=== PATIENT | male | born 1985 | race African-American/Black ===

== ENCOUNTER 2022-05-14 16:28 | Inpatient (IN) | payer SELFPAY ==
[~2022-05-14] VITALS: Ht 182.9 cm; Wt 85.5 kg
[2022-05-14] VITALS (7 sets, daily range): BP systolic 106–128; BP diastolic 62–76
[~2022-05-14 16:28] MED LIST: "\\\"BP MED\\\"" PO; AMOXIL500 MG PO; ANAPROX DS550 MG PO; COUMADIN1 MG PO; COUMADIN10 M1 PO; COUMADIN4 M1 PO; COUMADIN5 M1 PO; COUMADIN5 MG PO; COUMADIN7.5 M1 PO; CYMBALTA30 MG PO; Coumadin5 MG PO; DEPRESSION MED PO; HYDROCODONE BIT1 T11 PO; IBUPROFEN 30 M800 MG PO; LEVAQUIN750 MG PO; LISINOPRIL2.5 MG PO; NAPROSYN500 MG PO; OXYCODONE AND A1 TA3 PO; PERCOCET 325 MG1 TA2 PO; PERCOCET 325 MG1 TA7 PO; PRADAXA150 MG PO; PREDNISONE20 MG PO; PROTONIX40 MG PO; TESSALON PERLE200 MG PO; ULTRAM50 MG PO; VICO10300 PO; ZOFRAN ODT4 MG SL
[2022-05-14 16:45] LABS: ABG BASE EXCESS -6.7 mmol/L (-2.0-2.0); ARTERIAL BLOOD GAS PH 7.313 (7.35-7.45); ARTERIAL BLOOD GAS PO2 186.4 (80-90)
[2022-05-14 17:15] LABS: BASO % 0.2 % (0.0-1.0); EOS # 0.1 10*3/uL (0.0-0.4); EOS % 0.5 % (1.0-4.0); HEMATOCRIT 49.9 % (42.0-52.0); LYMPH # 2.5 10*3/uL (1.3-4.4); LYMPH % 17.9 % (27.0-41.0); MEAN CELL VOLUME 87.5 fl (80.0-94.0); MEAN CORPUSCULAR HGB CONC 30.9 g/dl (33.0-37.0); MEAN PLATELET VOLUME 9.5 fl (9.6-12.3); MONO # 0.6 10*3/uL (0.1-1.0); MONO % 4.2 % (3.0-9.0); NEUT # 10.8 10*3/uL (2.3-7.9); NEUT % 76.6 % (47.0-73.0); PLATELET COUNT AUTOMATED 166 10*3/uL (130-400); RED CELL DISTRI WIDTH 21.8 % (0-14.5)
[2022-05-14 17:26] LABS: ACT PARTIAL THROMBO TIME 22.2 SECONDS (20.0-32.1); INTERNATIONAL NORM RATIO 1.1 (2.0-3.5)
[2022-05-14 17:32] LABS: ALKALINE PHOSPHATASE 142 U/L (45-117); BUN 8 mg/dl (7-24); CHLORIDE 107 mmol/L (98-107); CREATININE 1.44 mg/dL (0.70-1.30); POTASSIUM 3.1 mmol/L (3.5-5.1); SGPT/ALT 47 U/L (12-78); SODIUM 138 mmol/L (136-145); TOTAL PROTEIN 8.4 gm/dL (6.4-8.2)
[2022-05-15 00:22] VITALS: BP 102/79
[2022-05-15] MEDS ORDERED: XARELTO20 M1 PO (02:39)
[2022-05-15 04:00] VITALS: BP 111/81
== END 2022-05-15 05:13 | disposition short-term general hospital (02) | DRG 175 ==
LOC: ED 16:28 → EDHOLD 20:43 → ICCU 20:43
PROVIDERS: Emergency Medicine; ADMIT Internal Medicine; ATTEND Internal Medicine
PROC: 0HQ1XZZ Repair Face Skin, External Approach (ICD-10-PCS; principal; 2022-05-14)
PROC: 0CQ0XZZ Repair Upper Lip, External Approach (ICD-10-PCS; 2022-05-15)
DX: I26.99 Other pulmonary embolism without acute cor pulmonale (principal); I21.4 Non-ST elevation (NSTEMI) myocardial infarction; N17.0 Acute kidney failure with tubular necrosis; E87.20 Acidosis, unspecified; I27.20 Pulmonary hypertension, unspecified; S01.511A Laceration without foreign body of lip, initial encounter; E87.6 Hypokalemia; D72.829 Elevated white blood cell count, unspecified; R73.9 Hyperglycemia, unspecified; E83.41 Hypermagnesemia; M32.9 Systemic lupus erythematosus, unspecified; I51.9 Heart disease, unspecified; Z87.81 Personal history of (healed) traumatic fracture